=== PATIENT | female | born 1985 ===

== ENCOUNTER 2017-09-02 08:42 | Inpatient (IN) | payer OTHER ==
[~2017-09-02] VITALS: Ht 165.2 cm; Wt 122.7 kg
[2017-09-04] VITALS (62 sets, daily range): BP systolic 105–159; BP diastolic 59–103; PULSE 75–133; TEMP 97.6–98.1
[2017-09-04] MEDS ORDERED: PRENATAL1 TA7 PO (08:23)
[2017-09-04 09:14] LABS: BASO % 0.1 % (0.0-2.0); EOS % 0.4 % (0-4.0); GRAN # 7.2 (1.4-6.5); GRAN % 79.9 % (42.2-75.2); LYMPH # 1.1 (1.2-3.4); LYMPH % 12.2 % (20.0-51.0); MEAN CELL VOLUME 84 fl (80.0-100.0); MEAN CORPUSCULAR HGB CONC 34 g/dl (33.0-37.0); MEAN PLATELET VOLUME 11.4 fl (7.4-10.4); MONO # 0.6 (0.1-0.6); MONO % 7.1 % (1.7-9.3); PLATELET COUNT 224 K/mm3 (130-400); RED BLOOD COUNT 3.93 M/mm3 (4.10-5.30); REDCELL DISTRIBUTION WIDTH-CV 14.1 % (11.5-14.5)
[2017-09-04 09:17] LABS: HEMATOCRIT 33.1 % (37.0-47.0); HEMOGLOBIN 11.4 g/dl (12.5-16.0); MEAN CORPUSCULAR HEMOGLOBIN 29 pg (27.0-31.0)
[2017-09-05] VITALS (25 sets, daily range): BP systolic 106–153; BP diastolic 61–93; PULSE 72–120; TEMP 97.6–98.6
[2017-09-06 04:00] VITALS: BP 138/76; PULSE 116; TEMP 97.8
[2017-09-06 06:39] LABS: BASO % 0.3 % (0.0-2.0); EOS # 0.1 (0.0-0.7); GRAN # 9.6 (1.4-6.5); GRAN % 83.9 % (42.2-75.2); LYMPH # 0.9 (1.2-3.4); MEAN CELL VOLUME 86 fl (80.0-100.0); MEAN CORPUSCULAR HGB CONC 34 g/dl (33.0-37.0); MEAN PLATELET VOLUME 10.8 fl (7.4-10.4); MONO # 0.7 (0.1-0.6); MONO % 6.5 % (1.7-9.3); PLATELET COUNT 201 K/mm3 (130-400); RED BLOOD COUNT 3.77 M/mm3 (4.10-5.30); REDCELL DISTRIBUTION WIDTH-CV 14.3 % (11.5-14.5)
[2017-09-06 06:45] LABS: HEMATOCRIT 32.4 % (37.0-47.0); HEMOGLOBIN 10.9 g/dl (12.5-16.0); MEAN CORPUSCULAR HEMOGLOBIN 29 pg (27.0-31.0)
[2017-09-06 10:26] VITALS: BP 136/71; PULSE 113; TEMP 98.1
[2017-09-06 16:00] VITALS: BP 131/74; PULSE 103; TEMP 98.1
[2017-09-06 20:45] VITALS: BP 139/80; PULSE 124; TEMP 97.8
[2017-09-07 08:30] VITALS: BP 140/77; PULSE 101; TEMP 98.1
[2017-09-07] MEDS ORDERED: IBU600 MG PO (09:00)
[2017-09-07] MEDS ORDERED: PERCOCET 325 MG1 TA2 PO (09:01)
[2017-09-07 16:09] VITALS: BP 139/82; PULSE 99; TEMP 97.8
== END 2017-09-07 17:15 | disposition home or self-care (01) | DRG 765 ==
LOC: LDR 09-04 07:49 → OB 09-04 07:49 → LDR 09-04 08:41 → OB 09-05 04:05
PROVIDERS: Obstetrics & Gynecology
PROC: 10D00Z1 Extraction of Products of Conception, Low, Open Approach (ICD-10-PCS; principal; 2017-09-05)
DX: O34.211 Maternal care for low transverse scar from previous cesarean delivery (principal); O40.3XX0 Polyhydramnios, third trimester, not applicable or unspecified; Z3A.40 40 weeks gestation of pregnancy; Z37.0 Single live birth; O10.93 Unspecified pre-existing hypertension complicating the puerperium; O62.1 Secondary uterine inertia
CPT/HCPCS: J0690; J1885; J2175; J2405; J2540; J2590; J3010; J7120